=== PATIENT | male | born 1965 | race Caucasian/White ===

== ENCOUNTER 2017-04-18 16:43 | Emergency (ER) | payer BC ==
--- NOTE | 2017-04-18 18:01 | EDM.PDOC ---
ED HPI GENERAL MEDICAL PROBLEM - General Chief Complaint: Upper Extremity Injury/Pain Stated Complaint: [id number] popped arm out Time Seen by Provider: 04/18/17 17:56 Source of Information: Reports: Patient History Limitations: Reports: No Limitations - History of Present Illness INITIAL COMMENTS - FREE TEXT/NARRATIVE: patient slipped and fell on the ice just prior to coming the emergency room. He believes his shoulder dislocated and reduced spontaneously. Complains of pain with multidirectional movement. No other complaints. Onset: Today Duration: Minutes: Location: Reports: Upper Extremity, Left Quality: Reports: Ache, Dull Severity: Mild Improves with: Reports: Immobilization Worsens with: Reports: Movement Left Shoulder Pain Score (Numeric/FACES): 10 - Related Data Allergies Allergy/AdvReac Type Severity Reaction Status Date / Time No Known Allergies Allergy Verified 09/23/14 14:03 Home Meds: Home Meds Atenolol 25 mg PO BEDTIME 09/23/14 [History] Simvastatin [Zocor] 40 mg PO BEDTIME 09/23/14 [History] Past Medical History Cardiovascular History: Reports: High Cholesterol, Hypertension - Past Surgical History HEENT Surgical History: Reports: Oral Surgery GI Surgical History: Reports: Cholecystectomy Male Surgical History: Reports: Vasectomy Musculoskeletal Surgical History: Reports: Arthroscopic Knee Social & Family History - Tobacco Use Smoking Status *Q: Never Smoker Second Hand Smoke Exposure: No - Caffeine Use Caffeine Use: Reports: None - Recreational Drug Use Recreational Drug Use: No Review of Systems - Review of Systems Review Of Systems: ROS reveals no pertinent complaints other than HPI. ED EXAM, GENERAL - Physical Exam Exam: See Below Exam Limited By: No Limitations General Appearance: Alert, WD/WN, No Apparent Distress Respiratory/Chest: No Respiratory Distress, Lungs Clear Extremities: Other (Mild pain to palpation greater tuberosity of the proximal left humerus. Pain with internal and external rotation. Pain with initiating abduction. Pain active and passive multidirectional movement normal biceps and triceps movement. Unable to do Jobst test secondary to pain. Difficulty with internal and external rotation. Unable to do a lift off test. No pain to palpation to the acromioclavicular joint) Psychiatric: Normal Affect Course - Vital Signs Last Recorded V/S: Last Vital Signs Temp 98.9 F 04/18/17 17:13 Pulse 72 04/18/17 17:13 Resp 16 04/18/17 17:13 BP 149/79 H 04/18/17 17:13 Pulse Ox 98 04/18/17 17:13 - Re-Assessments/Exams Free Text/Narrative Re-Assessment/Exam: Reviewing 3 view left shoulder shows no evidence of fracture or dislocation 04/18/17 18:18 Departure - Departure Time of Disposition: 18:01 Disposition: Home, Self-Care 01 Condition: Good Clinical Impression: Left shoulder pain Qualifiers: Chronicity: acute Qualified Code(s): M25.512 - Pain in left shoulder - Discharge Information Instructions: Shoulder Pain, How to Use a Sling, [id number] Forms: ED Department Discharge Additional Instructions: Use the sling as needed. Ice to the shoulder for 30 minutes at a time multiple times per day. May use Tylenol and ibuprofen in addition to the tramadol for pain. Follow up with the provider next week for further violation. Call or return to the emergency room if worsening symptoms any other problems questions or concerns
[2017-04-18 18:53] VITALS: BP 135/83
== END 2017-04-18 18:48 | disposition home or self-care (01) ==
LOC: DL.ED 16:43
DX: M25.512 Pain in left shoulder (principal); E78.00 Pure hypercholesterolemia, unspecified; I10 Essential (primary) hypertension
CPT/HCPCS: 73030-LT; 99283

== ENCOUNTER 2019-01-31 12:50 | Emergency (ER) | payer BC ==
[2019-01-31 13:01] VITALS: BP 145/81; PULSE 72
--- NOTE | 2019-01-31 13:25 | CR ---
EXAMINATION: Chest 1V Frontal SEX: Male AGE: 54 years CLINICAL HISTORY: 54-year-old male chest pain. No known trauma. INTERPRETATION: External club attendant leads. Normal cardiac silhouette (size and configuration) and left-sided aortic arch. No pulmonary vascular congestion, cephalization of flow, alveolar edema or dependent pleural effusion. No lung mass or hilar lymphadenopathy. No focal lobar pneumonia, atelectasis or collapse. No pneumothorax, pneumomediastinum or free subdiaphragmatic air.. CONCLUSION: No acute cardiopulmonary abnormality.
[2019-01-31 13:29] LABS: ANION GAP 11.9; CHLORIDE,CL 102 mmol/L (101-111); SODIUM,NA 138 mmol/L (135-145)
--- NOTE | 2019-01-31 14:40 | EDM.PDOC ---
Scribed by Sharon Lepe 01/31/19 [id number] for Jad Steinberg PA ED HPI GENERAL MEDICAL PROBLEM - General Chief Complaint: Chest Pain Stated Complaint: CHEST PAIN Time Seen by Provider: 01/31/19 13:45 Source of Information: Reports: Patient, Family, RN, RN Notes Reviewed History Limitations: Reports: No Limitations - History of Present Illness INITIAL COMMENTS - FREE TEXT/NARRATIVE: Patient is a 54-year-old male who presents to ER with complaint of chest pain. He has had 3 days of heart ache. He felt good this morning and took 1 aspirin but has minimal discomfort. Patient is allergic to corn and corn syrup. His [id number] restricted him on goods. He has increased vagus nerve with increased junk food. He saw Dr. Lucero 2 weeks ago and started on Pantoprazole. He was to have a stress test but the machine broke. He is to big for the travelling machine and needs to schedule in [place]. Onset Date: 01/28/19 Duration: Constant Location: Reports: Chest Quality: Reports: Ache Severity: Moderate Improves with: Reports: None Worsens with: Reports: None Associated Symptoms: Reports: No Other Symptoms Chest Pain Score (Numeric/FACES): 4 - Related Data Allergies Allergy/AdvReac Type Severity Reaction Status Date / Time acetaminophen Allergy Anxiety Verified 01/31/19 13:02 [From Darvocet-N] corn Allergy Other Verified 01/31/19 13:01 propoxyphene Allergy Anxiety Verified 01/31/19 13:02 [From Darvocet-N] Home Meds: Home Meds Aspirin 325 mg PO DAILY 01/31/19 [History] Atenolol 25 mg PO DAILY 01/31/19 [History] Pantoprazole Sodium 40 mg PO DAILY 01/31/19 [History] Simvastatin 40 mg PO DAILY 01/31/19 [History] Past Medical History Cardiovascular History: Reports: Afib (related to earing corn 10 years ago.), High Cholesterol, Hypertension Gastrointestinal History: Reports: GERD Musculoskeletal History: Reports: Arthritis Endocrine/Metabolic History: Reports: Obesity/BMI 30+ - Infectious Disease History Infectious Disease History: Reports: Chicken Pox - Past Surgical History GI Surgical History: Reports: Cholecystectomy, Colonoscopy Musculoskeletal Surgical History: Reports: None Social & Family History - Tobacco Use Smoking Status *Q: Never Smoker - Caffeine Use Caffeine Use: Reports: None - Recreational Drug Use Recreational Drug Use: No ED ROS GENERAL - Review of Systems Review Of Systems: Comprehensive ROS is negative, except as noted in HPI. ED EXAM, GENERAL - Physical Exam Exam: See Below Exam Limited By: No Limitations General Appearance: Alert, WD/WN, No Apparent Distress Eye Exam: Bilateral Eye: EOMI, Normal Inspection, PERRL Ears: Normal External Exam, Normal Canal, Hearing Grossly Normal, Normal TMs Nose: Normal Inspection, Normal Mucosa, No Blood Throat/Mouth: Normal Inspection, Normal Lips, Normal Teeth, Normal Gums, Normal Oropharynx, Normal Voice, No Airway Compromise Head: Atraumatic, Normocephalic Neck: Normal Inspection, Supple, Non-Tender, Full Range of Motion Respiratory/Chest: No Respiratory Distress, Lungs Clear, Normal Breath Sounds, No Accessory Muscle Use, Chest Non-Tender Cardiovascular: Normal Peripheral Pulses, Regular Rate, Rhythm, No Edema, No Gallop, No JVD, No Murmur, No Rub GI/Abdominal: Normal Bowel Sounds, Soft, Non-Tender, No Organomegaly, No Distention, No Abnormal Bruit, No Mass (Male) Exam: Deferred Rectal (Males) Exam: Deferred Back Exam: Normal Inspection, Full Range of Motion, NT Extremities: Normal Inspection, Normal Range of Motion, Non-Tender, Normal Capillary Refill, No Pedal Edema Neurological: Alert, Oriented, CN II-XII Intact, Normal Cognition, Normal Gait, Normal Reflexes, No Motor/Sensory Deficits Psychiatric: Normal Affect, Normal Mood Skin Exam: Warm, Dry, Intact, Normal Color, No Rash Lymphatic: No Adenopathy Course - Vital Signs Last Recorded V/S: Last Vital Signs Temp 36.4 C 01/31/19 12:56 Pulse 72 01/31/19 12:56 Resp 20 01/31/19 12:56 BP 145/81 H 01/31/19 12:56 Pulse Ox 100 01/31/19 12:56 - Orders/Labs/Meds Orders: Active Orders 24 hr Category Date Time Status EKG Documentation Completion [RC] URGENT Care 01/31/19 13:00 Active Labs: Laboratory Tests 01/31/19 01/31/19 Range/Units 13:01 13:01 WBC 5.5 (5.0-10.0) 10^3/uL RBC 5.26 (4.6-6.2) 10^6/uL Hgb 16.2 (14.0-18.0) g/dL Hct 46.1 (40.0-54.0) % MCV 87.6 (80-100) fL MCH 30.8 (27.0-34.0) pg MCHC 35.1 H (33.0-35.0) g/dL Plt Count 197 (150-450) 10^3/uL Neut % (Auto) 55.3 (42.2-75.2) % Lymph % (Auto) 32.5 (20.5-50.1) % [place] % (Auto) 10.2 H (2-8) % Eos % (Auto) 1.8 (1.0-3.0) % Baso % (Auto) 0.2 (0.0-1.0) % Sodium 138 (135-145) mmol/L Potassium 3.9 (3.6-5.0) mmol/L Chloride 102 (101-111) mmol/L Carbon Dioxide 28.0 (21.0-31.0) mmol/L Anion Gap 11.9 BUN 11 (7-18) mg/dL Creatinine 1.1 (0.6-1.3) mg/dL Est Cr Clr Drug Dosing 92.06 mL/min Estimated GFR (MDRD) > 60 BUN/Creatinine Ratio 10.00 Glucose 89 (74-105) mg/dL Calcium 9.0 (8.4-10.2) mg/dl Total Bilirubin 1.6 H (0.2-1.0) mg/dL AST 36 (10-42) IU/L ALT 38 (10-60) IU/L Alkaline Phosphatase 58 (42-121) IU/L Troponin I < 0.02 (0.00-0.02) ng/ml Total Protein 7.5 (6.7-8.2) g/dl Albumin 4.0 (3.2-5.5) g/dl Globulin 3.5 Albumin/Globulin Ratio 1.14 Departure - Departure Time of Disposition: 14:36 Disposition: Home, Self-Care 01 Condition: Fair Clinical Impression: Nonspecific chest pain, Angina pectoris, unspecified Instructions: Nonspecific Chest Pain, [id number], Angina Pectoris, Easy-to- Read Forms: ED Department Discharge Care Plan Goals: The patient and his were advised of the examination, lab, EKG and x-ray results during the visit. The patient was discharged with a script for Nitroglycerin (0.4 mg) #1 bottle to take 1 by mouth as needed for chest pain. The patient was encouraged to follow-up with his primary care facility for scheduling of a stress test. If the patient has any additional symptoms or concerns, the patient should either return to the emergency department or visit his primary care facility. - My Orders Last 24 Hours: My Active Orders 01/31/19 13:00 EKG Documentation Completion [RC] URGENT - Assessment/Plan Last 24 Hours: My Active Orders 01/31/19 13:00 EKG Documentation Completion [RC] URGENT I have read and agree with the documentation that has been completed regarding this visit. By signing this record, I attest that the documentation was completed in my physical presence and is an accurate record of the encounter.
== END 2019-01-31 14:46 | disposition home or self-care (01) ==
LOC: MERGE 12:50 → DL.ED 12:50
DX: I20.9 Angina pectoris, unspecified (principal); I48.91 Unspecified atrial fibrillation; K21.9 Gastro-esophageal reflux disease without esophagitis; E66.9 Obesity, unspecified; Z79.82 Long term (current) use of aspirin; Z79.899 Other long term (current) drug therapy; Z91.018 Allergy to other foods; Z88.8 Allergy status to other drugs, medicaments and biological substances
CPT/HCPCS: 36415; 71045; 80053; 84484; 85025; 99285-25

== ENCOUNTER 2020-11-22 15:27 | Emergency (ER) | payer OTHER, BC ==
[2020-11-22 16:09] VITALS: BP 125/84; PULSE 62
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
[2020-11-22] MEDS ORDERED: Acetaminophen 500 MG Tab PO ONE (18:01)
== END 2020-11-22 18:11 | disposition home or self-care (01) ==
LOC: DL.ED 15:27
DX: M47.812 Spondylosis without myelopathy or radiculopathy, cervical region (principal); I48.91 Unspecified atrial fibrillation; I10 Essential (primary) hypertension; E78.00 Pure hypercholesterolemia, unspecified; K21.9 Gastro-esophageal reflux disease without esophagitis; M19.90 Unspecified osteoarthritis, unspecified site; E66.9 Obesity, unspecified; Z68.36 Body mass index [BMI] 36.0-36.9, adult; Z88.6 Allergy status to analgesic agent; Z91.018 Allergy to other foods; Z79.82 Long term (current) use of aspirin; Z79.899 Other long term (current) drug therapy; V69.9XXA Occupant (driver) (passenger) of heavy transport vehicle injured in unspecified traffic accident, initial encounter
CPT/HCPCS: 72125; 99283; 99284; A9270